=== PATIENT | male | born 1960 ===

== ENCOUNTER 2019-03-22 07:45 | Emergency (ER) | payer OTHER ==
--- NOTE | 2019-03-22 08:24 | UC ---
Lower Extremity/Ankle HPI - HPI Summary HPI Summary: PATIENT HAS HAD DISCOMFORT IN THE BOTTOM OF HIS LEFT FOOT FOR SOME YEARS THAT HE NOTICES MOSTLY WHEN RUNNING. NEVER SOUGHT MEDICAL ATTENTION FOR THIS. RUNS A FEW MILES MOST DAYS. LAST NIGHT WHILE RUNNING HE STEPPED ON A LARGE PIECE OF GRAVEL AND THE PAIN ON THE BOTTOM OF HIS LEFT FOOT GOT SIGNIFICANTLY WORSE. NOW IS UNABLE TO AMBULATE WITHOUT DISCOMFORT AND FAVORING THE FOOT. - History of Current Complaint Chief Complaint: UCLowerExtremity Stated Complaint: FOOT INJURY Time Seen by Provider: 03/22/19 08:00 Hx Obtained From: Patient Onset/Duration: Sudden Onset, Lasting Hours, Still Present Severity Initially: Moderate Severity Currently: Moderate Pain Intensity: 5 Pain Scale Used: 0-10 Numeric Aggravating Factor(s): Standing, Ambulation Alleviating Factor(s): Rest, Elevation Able to Bear Weight: Yes - Allergies/Home Medications Allergies/Adverse Reactions: Allergies Allergy/AdvReac Type Severity Reaction Status Date / Time No Known Allergies Allergy Verified 03/22/19 07:52 Home Medications: Home Medications Ibuprofen TAB* [Advil TAB*] 2 tab PO ONCE 03/22/19 [History Confirmed 03/22/19] Omeprazole 20 mg PO DAILY 03/22/19 [History Confirmed 03/22/19] PMH/Surg Hx/FS Hx/Imm Hx Cardiovascular History: Hypertension GI/ History: Gastroesophageal Reflux - Surgical History Surgical History: Yes Surgery Procedure, Year, and Place: L rotator cuff - Family History Known Family History: Positive: Non-Contributory - Social History Alcohol Use: Daily Substance Use Type: None Smoking Status (MU): Never Smoked Tobacco Review of Systems All Other Systems Reviewed And Are Negative: Yes Constitutional: Positive: Negative Skin: Positive: Negative Respiratory: Positive: Negative Cardiovascular: Positive: Negative Gastrointestinal: Positive: Negative Musculoskeletal: Positive: Arthralgia Physical Exam Triage Information Reviewed: Yes Appearance: Well-Appearing, No Pain Distress, Well-Nourished Vital Signs: Initial Vital Signs Temp 97.4 F 03/22/19 07:54 Pulse 63 03/22/19 07:54 Resp 16 03/22/19 07:54 BP 159/82 03/22/19 07:54 Pulse Ox 98 03/22/19 07:54 Vital Signs Reviewed: Yes Eyes: Positive: Conjunctiva Clear ENT: Positive: Hearing grossly normal Neck: Positive: Supple Respiratory: Positive: No respiratory distress, No accessory muscle use Cardiovascular: Positive: Pulses Normal Abdomen Description: Positive: Soft Musculoskeletal: Positive: ROM Intact, No Edema, Other: - TTP PLANTAR SURFACE LEFT FOOT OVERLYING 4TH METATARSAL Neurological: Positive: Alert Psychological: Positive: Age Appropriate Behavior Skin: Negative: Rashes Diagnostics - Radiology LEFT FOOT XRAYS Radiology Interpretation Completed By: Radiologist Summary of Radiographic Findings: SUBACUTE APPEARING NONDISPLACED FRACTURE OF THE BASE OF THE FOURTH METATARSAL. Lower Extremity Course/Dx - Course Course Of Treatment: X-RAY TODAY SHOWS A SUBACUTE FRACTURE OF THE BASE OF THE FOURTH METATARSAL OF THE LEFT FOOT. PATIENT HAS HAD SOME DISCOMFORT IN THIS AREA FOR YEARS AND I FEEL HE EXACERBATED HIS SYMPTOMS LAST NIGHT. PATIENT DECLINES CAM BOOT AND CRUTCHES. POLLO WRAP APPLIED FOR SOME COMPRESSION AND SUPPORT. ADVISED TO FOLLOW -UP WITH ORTHOPEDICS TO DISCUSS TREATMENT OPTIONS. - Differential Dx/Diagnosis Provider Diagnosis: Nondisplaced fracture of fourth metatarsal bone of left foot Discharge ED - Sign-Out/Discharge Documenting (check all that apply): Patient Departure All imaging exams completed and their final reports reviewed: Yes - Discharge Plan Condition: Stable Disposition: HOME Patient Education Materials: Foot Fracture in Adults (ED) Referrals: Kira Polo MD [Medical Doctor] - 2 Weeks Additional Instructions: XRAYS TODAY SHOW A SUBACUTE APPEARING NONDISPLACED FRACTURE OF THE BASE OF THE FOURTH METATARSAL. POLLO WRAP FOR COMPRESSION AND SUPPORT. OTC MEDICATIONS NEEDED FOR DISCOMFORT. TRY TO MINIMIZE WEIGHTBEARING AND FOLLOW-UP WITH ORTHOPEDICS IN THE NEXT 1-2 WEEKS. - Billing Disposition and Condition Condition: STABLE Disposition: Home
== END 2019-03-22 09:09 | disposition home or self-care (01) ==
LOC: UCEAST 07:45
DX: S92.345A Nondisplaced fracture of fourth metatarsal bone, left foot, initial encounter for closed fracture (principal); I10 Essential (primary) hypertension; K21.9 Gastro-esophageal reflux disease without esophagitis; Z79.899 Other long term (current) drug therapy; W22.8XXA Striking against or struck by other objects, initial encounter; Y93.02 Activity, running; Y92.9 Unspecified place or not applicable
CPT/HCPCS: 99202; G0463